=== PATIENT | male | born 1960 | race Caucasian/White ===

== ENCOUNTER 2018-12-08 08:07 | Inpatient (IN) | payer MEDICAID | END 2018-12-11 16:50 | disposition home or self-care (01) | LOC: ER 08:07 → DOU IN ICU 13:28 | PROC: 5A2204Z Restoration of Cardiac Rhythm, Single (ICD-10-PCS; principal; ~2018-12-08) | PROC: B246ZZ4 Ultrasonography of Right and Left Heart, Transesophageal (ICD-10-PCS; ~2018-12-08) | DX: I48.92 Unspecified atrial flutter (principal); J96.01 Acute respiratory failure with hypoxia; I50.23 Acute on chronic systolic (congestive) heart failure; I11.0 Hypertensive heart disease with heart failure; D68.59 Other primary thrombophilia; J44.1 Chronic obstructive pulmonary disease with (acute) exacerbation; F10.10 Alcohol abuse, uncomplicated; F17.210 Nicotine dependence, cigarettes, uncomplicated ==